=== PATIENT | female | born 1970 | race Caucasian/White ===

== ENCOUNTER 2022-01-12 09:11 | Day surgery (SDC) | payer OTHER, BC ==
--- NOTE | 2022-01-12 07:49 | HP ---
DATE OF SURGERY: 01/12/2022 HISTORY OF PRESENT ILLNESS: The patient is a 51-year-old with no loose or bloody stools, no change in bowel movements, no pain. Family history negative for colon cancer. She mentioned she had a prior colonoscopy. She is in need of screening colonoscopy. There is a question whether she had a positive Cologuard in the past. PAST MEDICAL HISTORY: Hypothyroidism in the past. Anxiety. Diabetes. Hypercholesterolemia. Hypertension. Chronic lung disease. Obstructive sleep apnea and CPAP in the past. PAST SURGICAL HISTORY: MEDICATIONS: Albuterol sulfate. She was on azithromycin in the past, Benzonatate, clopidogrel, cholecalciferol, Flonase, levothyroxine, prednisone in the past. ALLERGIES: BUSPIRONE. LIDOCAINE. MORPHINE. GABAPENTIN. DILAUDID. SENSITIVE TO LEXAPRO, CELEXA (NAUSEA). FAMILY HISTORY: Hyperlipidemia, diabetes, hypertension, cancer. SOCIAL HISTORY: No smoking. REVIEW OF SYSTEMS: Fourteen systems reviewed. No chest pain or palpitations. Other systems negative or noncontributory as above and per preadmission assessment. PHYSICAL EXAMINATION: GENERAL: No acute distress. HEENT: Sclerae nonicteric. NECK: No JVD. CHEST: Equal excursion, nonlabored breathing. CVS: Regular rhythm. ABDOMEN: Soft. EXTREMITIES: No cyanosis. NEURO: Alert. RECTAL: Deferred timed to endoscopy exam. PSYCH: Appropriate mood and affect. IMPRESSION: Need for screening colonoscopy. Question if she has history of positive Cologuard in the past. I feel she would benefit from colonoscopy under MAC anesthesia. General risk of bleeding or infection, risk of bowel injury or perforation possibly requiring further procedure, risk of missed or nondiagnosis or incomplete exam possibly requiring barium enema, other studies or procedures, general risk of anesthesia or sedation, risk of bowel prep or sedation but not limited to, consent obtained. Will proceed with colonoscopy under MAC anesthesia as an outpatient.
[~2022-01-12 09:11] MED LIST: Lactated Ringers 1,000 ML IV ONE
[2022-01-12] MEDS: Lactated Ringers 1,000 ML IV SCH (09:18)
[2022-01-12] MEDS ORDERED: DIPRIVAN 200 MG/20 ML IV ONE ×2 (11:46→11:56)
[2022-01-12] MEDS ORDERED: Versed 2 MG/2 ML Injection ONE (11:46)
[2022-01-12 13:17] VITALS: O2SAT 99
[2022-01-12 13:30] VITALS: BP 135/94; PULSE 67
--- NOTE | 2022-01-13 08:39 | OP ---
SURGERY DATE/TIME: 01/12/2022 1150 PREOPERATIVE DIAGNOSIS: Need for screening colonoscopy. POSTOPERATIVE DIAGNOSES: 1) Small early polyps versus hyperplastic lesion sigmoid colon and rectum. 2) Fair bowel prep. PROCEDURES: 1) Colonoscopy to cecum. 2) Hot biopsy polypectomy small early polyps versus hyperplastic lesion sigmoid colon x3. 3) Hot biopsy polypectomy small early polyps versus hyperplastic lesion rectum x3. 4) ASA Class III. 5) Fair bowel prep. SURGEON: Dr. Ermias Gutierrez. ANESTHESIA: MAC. ESTIMATED BLOOD LOSS: Minimal. INDICATIONS: As noted above. Risks and benefits explained in detail but not limited to and consent obtained. DESCRIPTION OF PROCEDURE AND FINDINGS: The patient is taken to the endoscopy room. MAC anesthesia induced. After official time out and no disagreement with planned procedure, digital rectal exam did not reveal any rectal masses. Video colonoscope inserted and passed up through the slightly tortuous sigmoid, descending, transverse and ascending colon. She had a little bit of liquidy stool, overall fair bowel prep. ASA Class III. The scope was then carefully withdrawn over the next 9 minutes. No signs of any large polyps, masses or obstructing lesions. Prep overall was fair. ASA Class III. The scope pulled back to sigmoid colon. Three small early polyps versus hyperplastic lesion removed with hot biopsy forceps with brief bursts of cautery and the same in the rectum. Two small early polyps removed with hot biopsy polypectomy. Good hemostasis noted. Path is pending. Prep overall was fair, a little liquidy semisolid stool throughout the colon. No signs of any large polyps, masses or obstructing lesions. The scope is withdrawn.
== END 2022-01-12 13:17 | disposition home or self-care (01) ==
LOC: SDC 09:11
PROVIDERS: ATTEND Surgery
DX: Z12.11 Encounter for screening for malignant neoplasm of colon (principal); K63.5 Polyp of colon
CPT/HCPCS: J2250; J2704